=== PATIENT | male | born 1970 | race Caucasian/White ===

== ENCOUNTER → 2017-05-31 | Outpatient (CLI) | payer BC ==
[~2017-05-31] MED LIST: ALBU8.5H2 IH; CLAR-19 PO; PRD10T PO
--- NOTE | 2017-05-31 11:17 | Diagnostic Imaging Report ---
INDICATION: Left upper quadrant pain and enlarged spleen. Evaluation of the left upper quadrant demonstrates the spleen to be normal in size measuring 11.2 x 6.0 x 4.5 cm. No abdominal wall hernia is identified. No abnormalities are detected. IMPRESSION: Unremarkable left upper quadrant ultrasound. Dictated by: Dictated on workstation # [id number]
== END ==
LOC: RAD 10:45
PROVIDERS: ATTEND Nurse Practitioner Family
DX: R16.1 Splenomegaly, not elsewhere classified (principal)
CPT/HCPCS: 76705

== ENCOUNTER → 2018-01-07 | Outpatient (CLI) | payer BC ==
[~2018-01-07] VITALS: Ht 172.7 cm; Wt 86.2 kg
[~2018-01-07] MED LIST changes: +ACHD5005 PO
== END | disposition home or self-care (01) ==
LOC: PREOP 07:02
PROVIDERS: ATTEND Surgery
DX: Z01.818 Encounter for other preprocedural examination (principal)

== ENCOUNTER 2018-01-08 07:36 | Day surgery (SDC) | payer BC ==
[~2018-01-08] VITALS: Ht 172.7 cm; Wt 86.2 kg
[~2018-01-08 07:36] MED LIST changes: -ACHD5005 PO
[2018-01-08 07:45] VITALS: BP 133/87
[2018-01-08] MEDS ORDERED: CLINDAMYCIN 600 MG/50 ML IVPB 50 ML IV ONE ×2 (08:00)
[2018-01-08] MEDS ORDERED: CATHETER FLUSH 10 ML SYR IV PRN (08:00)
[2018-01-08] MEDS ORDERED: LACTATED RINGERS 1,000 ML IV SCH (08:30)
[2018-01-08] MEDS ORDERED: MIDAZOLAM 2 MG/2 ML (VERSED) VIAL ONE (08:37)
[2018-01-08] MEDS ORDERED: fentaNYL INJECTION 100 MCG/2 ML AMP ONE (08:37)
[2018-01-08] MEDS ORDERED: PROPOFOL INJECTION 50 ML IV ONE (08:38)
--- NOTE | 2018-01-08 08:39 | Progress Note-Pre Operative ---
Pre-Operative Progress Note H&P Reviewed The H&P was reviewed, patient examined and no changes noted. Date Seen by Provider: Jan 08, 2018 Time Seen by Provider: 08:10 Date H&P Reviewed: Jan 08, 2018 Time H&P Reviewed: 08:10 Pre-Operative Diagnosis: lipoma left chest wall MARC ANTHONY DO Jan 08, 2018 08:39
[2018-01-08] MEDS ORDERED: BUPIVACAINE 0.5% 30 ML (SENSORCAINE) VIAL ONE (08:40)
[2018-01-08] MEDS ORDERED: LIDOCAINE 1% INJ 20 ML 20 ML VIAL ONE (08:41)
--- NOTE | 2018-01-08 09:34 | Progress Note-Post Operative ---
Post-Operative Progess Note Surgeon (s)/Pilot Plant Supervisor (s) Surgeon MARC ANTHONY DO Pilot Plant Supervisor: NA Pre-Operative Diagnosis lipoma left chest wall Post-Operative Diagnosis INTRAMUSCULAR LIPOMA LEFT CHEST WALL Procedure & Operative Findings Date of Procedure 01/08/18 Procedure Performed/Findings EXCISION OF INTRAMUSCULAR LIPOMA LEFT CHEST WALL 3.5 X 2 CM Anesthesia Type MAC Estimated Blood Loss Estimated blood loss (mL): MIN Specimens/Packing Specimens Removed LIPOMA MARC ANTHONY DO Jan 08, 2018 09:34
[2018-01-08] MEDS ORDERED: ACHD5005 PO (09:35)
--- NOTE | 2018-01-08 09:37 | Discharge Inst-Simple/Standard ---
Discharge Inst-Standard Discharge Medications New, Converted or Re-Newed RX: RX on Chart Patient Instructions/Follow Up Plan of Care/Instructions/FU: 2 WEEKS Tabitha Activity as Tolerated: Yes Discharge Diet: Regular Diet Other Inst to Patient Follow up Appt: Make appointment for 2 week. Instructions: No strenuous activity. May shower in 24 hours, no tub bath or soaking. Use incentive spirometer at home as directed. No Smoking Skin/Wound Care: YOU HAVE SPECIAL GLUE OVER INCISION IT WILL FALL OFF ON ITS OWN.. Symptoms to Report: Appetite Changes, Extremity Discoloration, Numbness/Tingling, Swelling Increased , Bleeding Excessive, Eyesight Changes, Pain Increased, Urine Color Change, Constipation(Persistent), Fever over 101 degree F, Pain/Pressure in chest, Urinating Difficulty, Cough Up/Vomit Blood, Heart Beat Irreg/Pounding, Pain/ Pressure in jaw, Vaginal Bleeding Increase, Cramps in feet or legs, Lightheadedness, Pain/Pressure in shoulder, Diarrhea(Persistent), Memory Changes Suddenly, Questions/Concerns, Weight gain consecutive days, Dizziness/ Fainting, Nausea/Vomiting, Shortness of Breath, Weight gain over 2 pounds If questions or concerns contact your physician Or seek help at emergency department. MARC ANTHONY DO Jan 08, 2018 09:37
[2018-01-08 10:10] VITALS: BP 112/75
[2018-01-08 10:40] VITALS: BP 117/81
[2018-01-08 10:50] VITALS: BP 117/81
--- NOTE | 2018-01-08 10:55 | Anesthesia-General Post-Op ---
MAC Patient Condition Mental Status/LOC: Same as Preop Cardiovascular: Satisfactory Nausea/Vomiting: Absent Respiratory: Satisfactory Pain: Controlled Complications: Absent Post Op Complications Complications None Follow Up Care/Instructions Patient Instructions None needed. Anesthesiology Discharge Order Discharge Order Patient is doing well, no complaints, stable vital signs, no apparent adverse anesthesia problems. No complications reported per nursing. RIDGE SLATER CRNA Jan 08, 2018 10:55
--- NOTE | 2018-01-08 23:39 | OPERATIVE REPORT ---
DATE OF SERVICE: 01/08/2018 PREOPERATIVE DIAGNOSIS: Lipoma, left chest wall. POSTOPERATIVE DIAGNOSIS: Lipoma, intramuscular left chest wall. PROCEDURE: Excision of intramuscular lipoma from left chest wall 3.5 x 2 cm. SURGEON: Marc Carrillo DO ANESTHESIA: MAC with local. ESTIMATED BLOOD LOSS: Minimal. COMPLICATIONS: None. INDICATIONS: The patient is a 47-year-old male with a lipomatous mass on the left chest wall. He understands risks and benefits of procedure and wished to proceed with procedure. Consent was signed on the chart. DESCRIPTION OF PROCEDURE: The patient was taken to the operating suite, was prepped and draped in sterile fashion. Surgical pause was performed. Local anesthetic was infiltrated into the area. A 15 blade scalpel was used to make an incision over the palpable mass. Cautery was used to dissect down through the subcutaneous tissues. lipoma was encountered and the muscle was encountered, which still the palpable mass was under the muscular tissue. A hemostat was then used to start to divide the muscle bluntly and the lipoma was encountered, which was then able to be removed. Overall, dimensions 3.5 x 2 cm. Once this was removed, the wound was irrigated with copious amounts of irrigation. The subcutaneous tissues were reapproximated using 3-0 Vicryl. Skin was then closed using 4-0 Monocryl in a subcuticular running fashion. The area was washed and dried and skin Affix was then placed over the incision. The patient tolerated procedure well without complications. He was taken to recovery room in stable condition. Job ID: [id number] DocumentID: [id number] Dictated Date: 01/08/2018 17:10:58 Candy Cutter Machine Date: 01/08/2018 23:38:54 Dictated By: MARC CARRILLO DO
== END 2018-01-08 10:50 | disposition home or self-care (01) ==
LOC: SDC 07:36
PROVIDERS: ATTEND Surgery
DX: D17.1 Benign lipomatous neoplasm of skin and subcutaneous tissue of trunk (principal); Z11.2 Encounter for screening for other bacterial diseases
CPT/HCPCS: 87081

== ENCOUNTER 2021-04-28 09:49 | Day surgery (SDC) | payer BC ==
[2021-04-28] VITALS (8 sets, daily range): BP systolic 110–122; BP diastolic 71–77
[~2021-04-28] VITALS: Ht 175.3 cm; Wt 82.3 kg
[~2021-04-28 09:49] MED LIST changes: +ACHD5005 PO
[2021-04-28 10:13] LABS: BASOPHILS % (AUTO) 0 % (0-10); EOSINOPHILS % (AUTO) 0 % (0-10); HEMATOCRIT 42 % (40-54); HEMOGLOBIN 14.7 g/dL (13.3-17.7); LYMPHOCYTES # (AUTO) 0.6 10^3/uL (1.0-4.0); LYMPHOCYTES % (AUTO) 7 % (12-44); MEAN CORPUSCULAR HEMOGLOBIN 30 pg (25-34); MEAN CORPUSCULAR HGB CONC 35 g/dL (32-36); MEAN CORPUSCULAR VOLUME 85 fL (80-99); MEAN PLATELET VOLUME 8.5 fL (9.0-12.2); MONOCYTES # (AUTO) 0.7 10^3/uL (0.0-1.0); MONOCYTES % (AUTO) 8 % (0-12); NEUTROPHILS # (AUTO) 7.6 10^3/uL (1.8-7.8); NEUTROPHILS % (AUTO) 84 % (42-75); PLATELET COUNT 174 10^3/uL (130-400)
[2021-04-28 10:23] LABS: ALBUMIN 4.1 GM/DL (3.2-4.5); POTASSIUM 4.1 MMOL/L (3.6-5.0)
[2021-04-28 10:24] LABS: CALCIUM 9.1 MG/DL (8.5-10.1)
[2021-04-28 10:27] LABS: BILIRUBIN,TOTAL 0.7 MG/DL (0.1-1.0)
[2021-04-28 10:29] LABS: CREATININE SERUM 1.26 MG/DL (0.60-1.30)
[2021-04-28 10:30] LABS: FIBRIN DEGRADATION PRODUCTS 0.26 UG/ML (0.00-0.49); INR 1.1 (0.8-1.4); PROTHROMBIN TIME PATIENT 14.4 SEC (12.2-14.7)
[2021-04-28 10:38] LABS: BILIRUBIN,URINE NEGATIVE (NEGATIVE); CLARITY,URINE CLEAR; COLOR,URINE YELLOW; GLUCOSE, URINE (UA) NEGATIVE (NEGATIVE); KETONES,URINE NEGATIVE (NEGATIVE); LEUKOCYTE ESTERASE ,URINE NEGATIVE (NEGATIVE); NITRITE,URINE NEGATIVE (NEGATIVE); PROTEIN,URINE NEGATIVE (NEGATIVE)
[2021-04-28] MEDS ORDERED: HEParin (CATH LAB) 2,000 ML IV ONE (10:45)
[2021-04-28] MEDS ORDERED: HEParin 1000 UNIT/ML (10ML VIAL) FOR BOLUS IV ONE (10:45)
[2021-04-28] MEDS ORDERED: ASPIRIN 81 MG CHEW (CHILDREN'S ASA) PO ONE (10:45)
[2021-04-28] MEDS ORDERED: LIDOCAINE 1% INJ 20 ML VIAL ONE (10:45)
[2021-04-28] MEDS ORDERED: HEParin DRIP 25000 UNIT/500ML 500 ML IV ONE (10:45)
[2021-04-28] MEDS ORDERED: NS IV 1000 ML 1,000 ML ONE (10:45)
[2021-04-28 10:46] LABS: BACTERIA,URINE MODERATE /HPF
[2021-04-28] MEDS ORDERED: MIDAZOLAM 5 MG/5 ML (VERSED) VIAL ONE (10:46)
[2021-04-28] MEDS ORDERED: fentaNYL INJ 100 MCG/2 ML AMP ONE (10:46)
[2021-04-28] MEDS ORDERED: HEParin 1000 UNIT/ML (10ML VIAL) FOR BOLUS ONE (10:48)
[2021-04-28] MEDS ORDERED: NITRO DRIP 25000 MCG/D5W 0 ML IV ONE (10:48)
[2021-04-28] MEDS ORDERED: EPTIFIBATIDE BOLUS 20 ML IV ONE (10:49)
--- NOTE | 2021-04-28 10:49 | ED Chest Pain ---
General Chief Complaint: Chest Pain Stated Complaint: COVID +, CP, HIGH HR Nursing Triage Note: PT AMBULATE TO ROOM 08 FROM URGENT CARE WITH C/O PALPATATIONS SINCE LAST NIGHT. PT DENIES CHEST PAIN. Source: patient Exam Limitations: no limitations, other (Urgent care record) History of Present Illness Date Seen by Provider: Apr 28, 2021 Time Seen by Provider: 10:02 Initial Comments This 50-year-old gentleman presents to the emergency room as directed by [facility] for reasons of chest pain with concerning EKG. He was diagnosed with COVID-19 on April 25 after developing symptoms on April 23. He had received his COVID-19 booster vaccination 24 hours prior to that. EKG sent from urgent care demonstrated ST changes in V1 through V4 concerning for ischemia. Patient describes a vague chest pressure rated as 3/10. He identifies no exacerbating factors. Vital signs are unremarkable. He states activity such as a walk he took last night improved the discomfort. He first noted the symptoms of palpitation and chest pressure last night. The sym ptoms made it difficult for him to sleep and he did not sleep much last night. He denies smoking. He has no prior history of coronary artery disease. He has hypertension and notable family history of coronary artery disease in his father who has stents. He chews tobacco and occasionally drinks alcohol. Aspirin 324 mg was administered at urgent care. He has been monitoring his oxygen saturations at home and reports they have been 99-100. His primary symptom has been fatigue. Allergies and Home Medications Allergies Coded Allergies: cefprozil (Verified Allergy, Unknown, 01/07/18) Patient Home Medication List Home Medication List Reviewed: Yes Azithromycin (Azithromycin) 250 Mg Tablet, 250 MG PO UD Prescribed by: CHAYA GOMEZ on 04/28/21 1154 Discontinued Medications Hydrocodone Bit/Acetaminophen (Lortab 5 Mg Tablet) 1 Tab Tab, 1 TAB PO Q4-6HR Discontinued Reason: No Longer Taking Prescribed by: MARC ANTHONY on 01/08/18 8825 Review of Systems Review of Systems Constitutional: no symptoms reported EENTM: No Symptoms Reported Respiratory: No Symptoms Reported Cardiovascular: See HPI Gastrointestinal: No Symptoms Reported Genitourinary: No Symptoms Reported Musculoskeletal: no symptoms reported Skin: no symptoms reported Psychiatric/Neurological: No Symptoms Reported Endocrine: No Symptoms Reported Hematologic/Lymphatic: No Symptoms Reported Past Xrexeum-Ktxiwv-Uoofvp Hx Patient Social History Tobacco Use?: No Smoking Status: Never a Smoker Smokeless Tobacco Frequency: Current Everyday User Use of E-Cig and/or Vaping dev: No Use of E-Cig and/or Vaping Arthur: Never a User Substance use?: No Alcohol Use?: Yes Alcohol Frequency: Once in a while Pt feels they are or have been: No Immunizations Up To Date First/Initial COVID19 Vaccinat: 06/2020 Second COVID19 Vaccination Vinod: 06/2020 Seasonal Allergies Seasonal Allergies: No Past Medical History Surgeries: Yes Appendectomy Respiratory: No Cardiac: Yes Hypertension (Borderline) Neurological: No Reproductive Disorders: No Sexually Transmitted Disease: No HIV/AIDS: No Genitourinary: No Gastrointestinal: No Musculoskeletal: No Endocrine: No HEENT: No Loss of Vision: Denies Hearing Impairment: Denies Cancer: No Psychosocial: No Integumentary: No Adverse Reaction/Blood Tranf: No (N/A) Family Medical History Reviewed and Corrections made Heart Disease Physical Exam Vital Signs Vital Signs - First Documented 04/28/21 09:58 Temp 37.1 Pulse 101 Resp 17 B/P (MAP) 131/79 (96) O2 Delivery Room Air Capillary Refill : Less Than 3 Seconds Height, Weight, BMI Height: 5'8.00" Weight: 190lbs. 0.0oz. 86.134696zt; 26.00 BMI Method:Stated General Appearance: No Apparent Distress, WD/WN HEENT: PERRL/EOMI, Normal ENT Inspection Neck: Normal Inspection; No JVD Respiratory: Lungs Clear, Normal Breath Sounds, No Accessory Muscle Use, No Respiratory Distress Cardiovascular: Regular Rate, Rhythm, No Edema, No Murmur Gastrointestinal: Normal Bowel Sounds, Non Tender, Soft Extremity: Normal Inspection, Non Tender, No Pedal Edema Neurologic/Psychiatric: Alert, Oriented x3, No Motor/Sensory Deficits, Normal Mood/Affect, pharmacovigilance safety expert II-XII Norm as Tested Skin: Normal Color, Warm/Dry Focused Exam Lactate Level 04/28/21 10:15: Lactic Acid Level 0.72 Lactic Acid Level Laboratory Tests Test 04/28/21 10:15 Lactic Acid Level 0.72 MMOL/L (0.50-2.00) Progress/Results/Core Measures Results/Orders Lab Results Laboratory Tests Test 04/28/21 10:05 1/14/22 10:15 04/28/21 10:20 Range/Units White Blood Count 9.0 4.3-11.0 10^3/uL Red Blood Count 4.96 4.30-5.52 10^6/uL Hemoglobin 14.7 13.3-17.7 g/dL Hematocrit 42 40-54 % Mean Corpuscular Volume 85 80-99 fL Mean Corpuscular Hemoglobin 30 25-34 pg Mean Corpuscular Hemoglobin Concent 35 32-36 g/dL Red Cell Distribution Width 12.8 10.0-14.5 % Platelet Count 174 130-400 10^3/uL Mean Platelet Volume 8.5 L 9.0-12.2 fL Immature Granulocyte % (Auto) 0 % Neutrophils (%) (Auto) 84 H 42-75 % Lymphocytes (%) (Auto) 7 L 12-44 % Monocytes (%) (Auto) 8 0-12 % Eosinophils (%) (Auto) 0 0-10 % Basophils (%) (Auto) 0 0-10 % Neutrophils # (Auto) 7.6 1.8-7.8 10^3/uL Lymphocytes # (Auto) 0.6 L 1.0-4.0 10^3/uL Monocytes # (Auto) 0.7 0.0-1.0 10^3/uL Eosinophils # (Auto) 0.0 0.0-0.3 10^3/uL Basophils # (Auto) 0.0 0.0-0.1 10^3/uL Immature Granulocyte # (Auto) 0.0 0.0-0.1 10^3/uL Prothrombin Time 14.4 12.2-14.7 SEC INR Comment 1.1 0.8-1.4 Activated Partial Thromboplast Time 32 24-35 SEC D-Dimer 0.26 0.00-0.49 UG/ML Sodium Level 135 135-145 MMOL/L Potassium Level 4.1 3.6-5.0 MMOL/L Chloride Level 103 98-107 MMOL/L Carbon Dioxide Level 22 21-32 MMOL/L Anion Gap 10 5-14 MMOL/L Blood Urea Nitrogen 9 7-18 MG/DL Creatinine 1.26 0.60-1.30 MG/DL Estimat Glomerular Filtration Rate 70 BUN/Creatinine Ratio 7 Glucose Level 116 H 70-105 MG/DL Calcium Level 9.1 8.5-10.1 MG/DL Corrected Calcium 9.0 8.5-10.1 MG/DL Magnesium Level 1.9 1.6-2.4 MG/DL Total Bilirubin 0.7 0.1-1.0 MG/DL Aspartate Amino Transf (AST/SGOT) 53 H 5-34 U/L Alanine Aminotransferase (ALT/SGPT) 84 H 0-55 U/L Alkaline Phosphatase 128 40-136 U/L Myoglobin 36.3 10.0-92.0 NG/ML Troponin I < 0.028 <0.028 NG/ML C-Reactive Protein High Sensitivity 11.80 H 0.00-0.50 MG/DL Total Protein 7.0 6.4-8.2 GM/DL Albumin 4.1 3.2-4.5 GM/DL Procalcitonin 0.27 H <0.10 NG/ML Lactic Acid Level 0.72 0.50-2.00 MMOL/L Urine Color YELLOW Urine Clarity CLEAR Urine pH 6.0 5-9 Urine Specific [place] >=1.030 1.016-1.022 Urine Protein NEGATIVE NEGATIVE Urine Glucose (UA) NEGATIVE NEGATIVE Urine Ketones NEGATIVE NEGATIVE Urine Nitrite NEGATIVE NEGATIVE Urine Bilirubin NEGATIVE NEGATIVE Urine Urobilinogen 0.2 < = 1.0 MG/DL Urine Leukocyte Esterase NEGATIVE NEGATIVE Urine RBC (Auto) NEGATIVE NEGATIVE Urine RBC NONE /HPF Urine WBC 2-5 /HPF Urine Squamous Epithelial Cells 5-10 /HPF Urine Renal Epithelial Cells NONE /HPF Urine Crystals NONE /LPF Urine Bacteria MODERATE H /HPF Urine Casts NONE /LPF Urine Mucus NEGATIVE /LPF Urine Culture Indicated YES My Orders Orders - CHAYA DUNN MD Cbc With Automated Diff (04/28/21 10:02) Comprehensive Metabolic Panel (04/28/21 10:02) Blood Culture (04/28/21 10:02) Urinalysis (04/28/21 10:02) Urine Culture (04/28/21 10:02) Protime With Inr (04/28/21 10:02) Partial Thromboplastin Time (04/28/21 10:02) Chest 1 View, Ap/Pa Only (04/28/21 10:02) Ed Iv/Invasive Line Start (04/28/21 10:02) Ed Iv/Invasive Line Start (04/28/21 10:02) O2 (04/28/21 10:02) Remove Rings In Anticipation O (04/28/21 10:02) Lactic Acid Analyzer (04/28/21 10:02) Fibrin Degradation Products (04/28/21 10:02) Procalcitonin (Pct) (04/28/21 10:02) Hs C Reactive Protein (04/28/21 10:02) Magnesium (04/28/21 10:30) Ekg Tracing (04/28/21 10:30) Myoglobin Serum (04/28/21 10:30) Monitor-Rhythm Ecg Trace Only (04/28/21 10:30) Troponin I [place] (04/28/21 10:30) Aspirin Chewable Tablet (Baby Aspirin Ch (04/28/21 10:45) Heparin Drip 37656 Unit/500ml (Heparin (04/28/21 10:45) Heparin (Bolus Per Protocol) (Heparin (B (04/28/21 10:45) Vital Signs/I&O 04/28/21 09:58 Temp 37.1 Pulse 101 Resp 17 B/P (MAP) 131/79 (96) O2 Delivery Room Air Blood Pressure Mean: 96 Progress Progress Note #1: Time: 10:53 Progress Note As soon as ST changes were brought to my attention, EKG was shared with Dr. Orr and he was paged. After reviewing EKG together, we determined cardiac angiography is the best course of action as acute [place] cannot be ruled out based on the EKG from the ER as well as EKG sent from urgent care. Patient received aspirin at the urgent care. Heparin will be initiated in the ER. Forensic Psychologist has been activated. Progress Note #2: Progress Note Patient was found to have no obstructive coronary artery disease on angiography. He was recovered in outpatient surgery. He was discharged from there by this provider. There was questionable infiltrate in the left lower lung. Azithromycin was prescribed as a precaution. Patient meets criteria for monoclonal antibody therapy with history of hypertension. Order for monoclonal antibody therapy was submitted to the pharmacy. Patient was informed his quali fication depends on available product and prioritization of patients. He expressed understanding. See discharge instructions for further information. Initial ECG Impression Date: Apr 28, 2021 Initial ECG Impression Time: 10:04 Initial ECG Rate: 106 Initial ECG Rhythm: S.Tach Comment Sinus tachycardia with ST depression in V1 and V2 with ST elevation in the [address] changes in V4. Findings are suspicious for developing ischemia but not necessarily clear-cut STEMI. No abnormal intervals or axis deviation. Diagnostic Imaging Diagonstic Imaging: Xray Plain Films/CT/US/NM/MRI: chest Comments Chest x-ray reviewed by me and report not yet available. Patchy infiltrate in the left lower lobe. Otherwise no acute abnormality appreciated. Departure Communication (Admissions) Time/Spoke to Admitting Phy: 10:30 Dr. Orr Impression Primary Impression: Abnormal EKG Additional Impressions: COVID-19 Chest pain Qualified Codes: R07.9 - Chest pain, unspecified Disposition: HOME, SELF-CARE Condition: Improved Admissions Decision to Admit Reason: Admit from ER (General) Decision to Admit/Date: Apr 28, 2021 Time/Decision to Admit Time: 10:30 Departure-Patient Inst. Decision time for Depature: 11:40 Referrals: JUAN LUIS GUTIERREZ DO (PCP/Family) Primary Care Physician Patient Instructions: COVID-19 Overview, Sotrovimab FDA Fact Sheet Add. Discharge Instructions: Complete the azithromycin antibiotic as prescribed. Continue to monitor oxygen saturations at home. If you have repeated oxygen saturations less than 92% or any oxygen saturation less than 90%, please return to the ER. Remain in quarantine for a full 10 days given your duration of symptoms. Follow-up with Dr. Orr in 2 to 3 weeks after you are fully recovered from COVID-19. Please call his office for an appointment time. Call with questions or concerns. Return to the ER if you have any other worsening of symptoms. Based on your body mass index and hypertension, you may qualify for monoclonal antibody therapy to further treat COVID-19. This treatment has potential to reduce your risk for severe disease and hospitalization. Please read the fact sheet provided. If the pharmacy obtains a dose available for you, you should receive a call to schedule an infusion time. All discharge instructions reviewed with patient and/or family. Voiced understanding. Scripts Azithromycin (Azithromycin) 250 Mg Tablet 250 MG PO UD, #6 TAB TAKE 2 TABLETS ON DAY ONE THEN TAKE 1 TABLET DAILY FOR FOUR MORE DAYS Prov: CHAYA DUNN MD 04/28/21 Copy Copies To 1: CAMMIE ORR MD FACP FAC CCDS Copies To 2: JUAN LUIS GUTIERREZ JOSHUA T MD Apr 28, 2021 10:49
--- NOTE | 2021-04-28 10:51 | Diagnostic Imaging Report ---
INDICATION: COVID infection Frontal chest obtained at 10:24 a.m. Heart and mediastinal silhouette are normal in appearance. The lungs are clear. There is no pneumothorax or pleural fluid. IMPRESSION: Negative chest. Dictated by: Dictated on workstation # [id number]
[2021-04-28 10:58] LABS: MAGNESIUM 1.9 MG/DL (1.6-2.4)
[2021-04-28] MEDS ORDERED: AZIT250T12 PO (11:54)
--- NOTE | 2021-04-28 11:57 | Consultation-Cardiology ---
HPI-Cardiology Cardiology Consultation: Date of Consultation 04/28/21 Time Seen by a Provider: 10:20 Date of Admission Attending Physician She[facility]r [facility] Alex Logan DO Consulting Physician SHERIE ORR MD, MA, FACP, FAC, [facility], [facility] Physician requesting consult: Dr Gonzales HPI: Chief Complaint: Gen malaise, shortness of breath, chest discomfort HPI 50 yo man who presented To Dr Gonzales at the ER at this hosp for eval of chest discomfort and gen malaise and URI-like symptoms and an intermittent feeling of rapid heart beat. He was found to be COVID positive. ECG showed NSR but atypical, anterior-lead ST elevation was seen. Dr Gonzales requested cardiac eval and consideration of emergency card cath. Pt does not report syncope. Pt denies swelling. Has not had symptoms like these before Review of Systems-Cardiology Review of Systems Constitutional: malaise, tiredness; No weight loss, No weight gain Eyes: No vision change Ears/Nose/Throat: No ear discharge, No nasal drainage, No recent hearing loss Respiratory: As described under HPI Cardiovascular: As described under HPI Gastrointestinal: No diarrhea, No nausea, No vomiting Genitourinary: No dysuria, No hematuria, No urine frequency changes Musculoskeletal: No back pain, No joint pain Skin: No rash, No ulcerations Psychiatric/Neurological: No seizure, No focal weakness, No syncope Hematologic: No bleeding abnormalities NYF-Gxyfpb-Pzbkhk Hx Patient Social History Smoking Status: Never a Smoker Have you traveled recently?: No Alcohol Use?: Yes Pt feels they are or have been: No Immunizations Up To Date Date of Influenza Vaccine: Dec 14, 2016 Past Medical History PMH As described under Assessment. Family Medical History Family Medical History: He reports a history of heart attacks in grand parents at age greater than 60 He does not report any history of early demise in his family Allergies and Home Medications Allergies Coded Allergies: cefprozil (Verified Allergy, Unknown, 01/07/18) Patient Home Medication List Home Medication List Reviewed: Yes Hydrocodone Bit/Acetaminophen (Lortab 5 Mg Tablet) 1 Tab Tab, 1 TAB PO Q4-6HR Prescribed by: MARC ANTHONY on 01/08/18 0935 Physical Exam-Cardiology Physical Exam Vital Signs/I&O 04/28/21 09:58 Temp 37.1 Pulse 101 Resp 17 B/P (MAP) 131/79 (96) O2 Delivery Room Air Capillary Refill : Less Than 3 Seconds Constitutional: AAO x 3, well-developed, well-nourished HEENT: EOMI, hearing is well preserved; No xanthelasmas are seen Neck: carotid pulses are 2 + bilaterally Respiratory: No accessory muscle use; other (good, bilateral air entry) Cardiovascular: regular rate-rhythm, S1 and S2 Gastrointestinal: No tender; soft; No guarding, No rebound; audible bowel sounds Extremities: No clubbing, No cyanosis, No significant edema Neurologic/Psychiatric: other (moves all limbs equally) Skin: No rash on exposed areas, No ulcerations on exposed areas Data Review Labs Laboratory Tests 04/28/21 10:05: White Blood Count 9.0, Red Blood Count 4.96, Hemoglobin 14.7, Hematocrit 42, Mean Corpuscular Volume 85, Mean Corpuscular Hemoglobin 30, Mean Corpuscular Hemoglobin Concent 35, Red Cell Distribution Width 12.8, Platelet Count 174, Mean Platelet Volume 8.5L, Immature Granulocyte % (Auto) 0, Neutrophils (%) (Auto) 84H, Lymphocytes (%) (Auto) 7L, Monocytes (%) (Auto) 8, Eosinophils (%) (Auto) 0, Basophils (%) (Auto) 0, Neutrophils # (Auto) 7.6, Lymphocytes # (Auto) 0.6L, Monocytes # (Auto) 0.7, Eosinophils # (Auto) 0.0, Basophils # (Auto) 0.0, Immature Granulocyte # (Auto) 0.0, Prothrombin Time 14.4, INR Comment 1.1, Activated Partial Thromboplast Time 32, D-Dimer 0.26, Sodium Level 135, Potassium Level 4.1, Chloride Level 103, Carbon Dioxide Level 22, Anion Gap 10, Blood Urea Nitrogen 9, Creatinine 1.26, Estimat Glomerular Filtration Rate 70, BUN/Creatinine Ratio 7, Glucose Level 116H, Calcium Level 9.1, Corrected Calcium 9.0, Magnesium Level 1.9, Total Bilirubin 0.7, Aspartate Amino Transf (AST/SGOT) 53H, Alanine Aminotransferase (ALT/SGPT) 84H, Alkaline Phosphatase 128, Myoglobin 36.3, Troponin I < 0.028, C-Reactive Protein High Sensitivity 11.80H, Total Protein 7.0, Albumin 4.1, Procalcitonin 0.27H 04/28/21 10:15: Lactic Acid Level 0.72 04/28/21 10:20: Urine Color YELLOW, Urine Clarity CLEAR, Urine pH 6.0, Urine Specific [place] >=1.030, Urine Protein NEGATIVE, Urine Glucose (UA) NEGATIVE, Urine Ketones NEGATIVE, Urine Nitrite NEGATIVE, Urine Bilirubin NEGATIVE, Urine Urobilinogen 0.2, Urine Leukocyte Esterase NEGATIVE, Urine RBC (Auto) NEGATIVE, Urine RBC NONE, Urine WBC 2-5, Urine Squamous Epithelial Cells 5-10, Urine Renal Epithelial Cells NONE, Urine Crystals NONE, Urine Bacteria MODERATEH, Urine Casts NONE, Urine Mucus NEGATIVE, Urine Culture Indicated YES Laboratory Tests 04/28/21 10:05 A/P-Cardiology Assessment/Admission Diagnosis Chest discomfort, non-cardiac no evidence of ac PR, card cath normal on 04/28/21 COVID-19, being treated by Dr Gonzales Discussion and Recomendations * Card cath was performed after having obtained an informed consent. Results are summarized above * I called Dr Gonzales and have transferred care back to him for treatment of and f/u on COVID-19 * I spoke with the patient and his and explained cath findings and advised outpt f/u and answered their questions Clinical Quality Measures AMI/AHF: ASA po Prior to arrival: SHERIE Joe MD FACP FAC CCDS Apr 28, 2021 11:57
[2021-04-28] MEDS ORDERED: NS IV 1000 ML 1,000 ML IV SCH (12:15)
[2021-04-28] MEDS ORDERED: PATIENT MAY USE OWN MEDS, ALL PO SCH (12:15)
--- NOTE | 2021-04-28 13:53 | CARDIAC CATHETERIZATION ---
DATE OF SERVICE: 04/28/2021 CARDIAC CATHETERIZATION INDICATIONS: The patient is a 50-year-old man who presented to Dr Gonzales in the emergency room with feeling of malaise and nonspecific chest discomfort. His electrocardiogram showed nonspecific abnormality in the anterior leads. ST elevation could not be excluded. Urgent cardiac catheterization was carried out after having obtained an informed consent. DESCRIPTION OF PROCEDURE: He was brought to the cardiac catheterization laboratory. Right groin was prepared and draped in the usual sterile fashion. Lidocaine 1% was used for local anesthesia. Modified Seldinger technique was used to advance a 6-Thai sheath in right femoral artery. A 6-Thai JL4 catheter for left coronary angiography. A 6-Thai JR4 catheter for right coronary angiography. A 6-Thai pigtail catheter was used for left heart catheterization and left ventricular angiography. Angiography of the right femoral artery was carried out through the sheath. Mynx was used to achieve hemostasis. He tolerated the procedure well. HEMODYNAMICS: Left ventricular end-diastolic pressure following coronary angiography was 12 mmHg. There is no significant pressure gradient on pullback across the aortic valve. aortic valve. LEFT VENTRICULAR ANGIOGRAPHY: Left ventricular angiography was carried out in the right anterior oblique projection. Global left ventricular systolic function is normal. No regional wall motion abnormalities are seen. Left ventricular ejection fraction is approximately 60%. CORONARY ANGIOGRAPHY: Left main coronary artery, left circumflex artery, left anterior descending artery, right coronary artery do not exhibit any angiographically significant disease. Right coronary artery is dominant. CONCLUSIONS: 1. No angiographically significant coronary artery disease. 2. Normal global left ventricular systolic function with normal regional wall motion and left ventricular ejection fraction of 60%. 3. Normal left ventricular end-diastolic pressure. DISCUSSION AND RECOMMENDATIONS: This study does not indicate any acute cardiac issues. This was discussed with the patient and his . Care was transferred back to Dr. Gonzales for treatment of and follow up on COVID-19. Outpatient cardiac followup was advised. Job ID: [id number] DocumentID: [id number] Dictated Date: 04/28/2021 12:13:55 Support Technician Date: 04/28/2021 13:50:26 Dictated By: CAMMIE MICHAELS MD, MA, FACP, FACC, MTDD
== END 2021-04-28 14:50 | disposition home or self-care (01) ==
LOC: EDUNIT# 09:49 → ER 09:51 → CATH 10:35
PROVIDERS: ATTEND Internal Medicine Cardiovascular Disease
DX: R07.89 Other chest pain (principal); R94.39 Abnormal result of other cardiovascular function study; R06.02 Shortness of breath; U07.1 COVID-19; R53.81 Other malaise; I10 Essential (primary) hypertension; F17.220 Nicotine dependence, chewing tobacco, uncomplicated; Z79.891 Long term (current) use of opiate analgesic; Z79.899 Other long term (current) drug therapy; Z90.89 Acquired absence of other organs
CPT/HCPCS: 71045; 80053; 81000; 83605; 83735; 83874; 84145; 84484; 85025; 85379; 85610; 85730; 86141; 87040; 87088; 93005; 93041; 93458; 99285; C1760; C1894; 36415

== ENCOUNTER 2021-05-02 09:43 | Outpatient (CLI) | payer BC ==
[~2021-05-02] VITALS: Ht 175.3 cm; Wt 82.6 kg
[~2021-05-02 09:43] MED LIST changes: +AZIT250T12 PO
[2021-05-02 09:48] VITALS: BP 120/80
[2021-05-02] MEDS ORDERED: ONDANSETRON 4 MG/2 ML (SDV) Z0FRAN IV PRN (10:00)
[2021-05-02] MEDS ORDERED: SOTROVIMAB 500 MG/NS 50 ML IVPB IV ONE ×2 (10:00)
[2021-05-02] MEDS ORDERED: EPINEPHrine INJECTION 1 MG/ML AMP IM PRN (10:00)
[2021-05-02] MEDS ORDERED: ACETAMINOPHEN 500 MG TAB (TYLENOL) PO PRN (10:00)
[2021-05-02] MEDS ORDERED: diphenhydrAMINE 50 MG/ML INJ (BENADRYL) IV PRN (10:00)
[2021-05-02 11:05] VITALS: BP 124/87
== END 2021-05-02 11:15 ==
LOC: INFUSION 09:43
PROVIDERS: ATTEND Family Medicine
DX: U07.1 COVID-19 (principal); I10 Essential (primary) hypertension

== ENCOUNTER 2021-09-27 07:13 | Outpatient (CLI) | payer BC ==
[~2021-09-27] VITALS: Ht 172.7 cm; Wt 85.3 kg
[2021-09-27] MEDS ORDERED: LISI20TA26 PO (09:53)
== END 2021-09-27 09:56 | disposition home or self-care (01) ==
LOC: PREOP 07:13
PROVIDERS: ATTEND Surgery
DX: Z01.818 Encounter for other preprocedural examination (principal)

== ENCOUNTER 2021-10-04 10:44 | Day surgery (SDC) | payer BC ==
[~2021-10-04] VITALS: Ht 172 cm; Wt 85.3 kg
[2021-10-04] VITALS (7 sets, daily range): BP systolic 116–138; BP diastolic 76–95
[~2021-10-04 10:44] MED LIST changes: +LISI20TA26 PO
[2021-10-04] MEDS ORDERED: LACTATED RINGERS 1,000 ML IV STA (10:48)
[2021-10-04] MEDS ORDERED: LACTATED RINGERS 1,000 ML IV ONE (10:56)
--- NOTE | 2021-10-04 10:56 | Progress Note-Pre Operative ---
Pre-Operative Progress Note H&P Reviewed The H&P was reviewed, patient examined and no changes noted. Date Seen by Provider: Oct 04, 2021 Time Seen by Provider: 10:30 Date H&P Reviewed: Oct 04, 2021 Time H&P Reviewed: 10:30 Pre-Operative Diagnosis: screening o ABHIJEET ACOSTA MD Oct 04, 2021 10:56
--- NOTE | 2021-10-04 10:58 | Discharge Inst-Surgical ---
D/C Lap Instructions-KARLA Follow Up Activity as tolerated High Fiber Diet 25g or more per day Avoid Alcohol, Caffeine, Spicy [place] and Acid foods. Drink 64 fluid oz or more of fluids per day. Symptoms to Report: Fever over 101 degree F, Nausea/Vomiting If any problems/questions: Contact your physician or go to Emergency Room ABHIJEET ACOSTA MD Oct 04, 2021 10:58
[2021-10-04] MEDS ORDERED: ONDANSETRON 4 MG/2 ML (SDV) Z0FRAN IVP PRN (11:00)
[2021-10-04] MEDS ORDERED: ONDANSETRON 4 MG (ZOFRAN) ORAL DISSOLVE TAB PO PRN (11:00)
[2021-10-04] MEDS ORDERED: LIDOCAINE JELLY 2% 6 ML SYRINGE MM PRN (11:00)
[2021-10-04] MEDS ORDERED: MIDAZOLAM 2 MG/2 ML (VERSED) VIAL ONE (12:02)
[2021-10-04] MEDS ORDERED: PROPOFOL INJECTION 50 ML IV ONE ×2 (12:03→12:15)
--- NOTE | 2021-10-04 12:46 | Progress Note-Post Operative ---
Post-Operative Progess Note Surgeon (s)/Nursing Service Administrator (s) Surgeon ABHIJEET ACOSTA MD Nursing Service Administrator: none Pre-Operative Diagnosis screening colo Post-Operative Diagnosis normal colon and rectum Procedure & Operative Findings Date of Procedure 10/04/21 Procedure Performed/Findings colonoscopy. Anesthesia Type mac Estimated Blood Loss Estimated blood loss (mL): minimal Specimens/Packing Specimens Removed none ABHIJEET ACOSTA MD Oct 04, 2021 12:46
--- NOTE | 2021-10-04 14:19 | Anesthesia-General Post-Op ---
MAC Patient Condition Mental Status/LOC: Same as Preop Cardiovascular: Satisfactory Nausea/Vomiting: Absent Respiratory: Satisfactory Pain: Controlled Complications: Absent Post Op Complications Complications None Follow Up Care/Instructions Patient Instructions None needed. Anesthesiology Discharge Order Discharge Order Patient is doing well, no complaints, stable vital signs, no apparent adverse anesthesia problems. No complications reported per nursing. RIDGE SLATER CRNA Oct 04, 2021 14:19
--- NOTE | 2021-10-05 00:22 | OPERATIVE REPORT ---
DATE OF SERVICE: 10/04/2021 ATTENDING PRIMARY CARE PHYSICIAN: Dr. Alex Logan Pre Op Dx: screening colonoscopy. Post Op Dx: normal colon and rectum. PROCEDURE: Colonoscopy. ANESTHESIA: Monitored anesthesia care. ESTIMATED BLOOD LOSS: Minimal. FINDINGS: normal colon and rectum. DISPOSITION: The patient tolerated the procedure well. INDICATIONS: The patient is a 51-year-old male referred over to us for screening colonoscopy. He states that he is otherwise doing well, does not report any major issues with diarrhea nor constipation as well as no red blood per rectum nor any dark tarry stools. He also does not know of any family history of colon cancer. DESCRIPTION OF PROCEDURE: The patient was brought to the endoscopy suite, laid in left lateral decubitus position. After adequate IV pain and sedative medications and monitored anesthesia care, a digital rectal examination was performed. No significant hemorrhoids identified. Normal sphincter tone was felt and there were no palpable masses. Prostate gland was slightly firm; however, no nodules palpated. The endoscope was then intubated to the anus and the rectum insufflated. The endoscope was then advanced through the valves of [place] of the rectum with no polyps or any neoplasms. Through the sigmoid colon, no diverticulosis identified. We then proceeded through the remainder of the descending, transverse and ascending colon to the cecum, which were normal. There were no polyps or any neoplasms identified throughout the colon or rectum. The endoscope was then slowly withdrawn while taking a second look and suctioning of residual air with no additional findings. The patient tolerated the procedure well. We will recommend continued medical management with a high-fiber diet with a fiber supplement, which should equal or exceed 30 grams daily as well as significant amounts of water to promote soft stools on a daily basis. If he is asymptomatic, he does not need another colonoscopy for another 10 years. Job ID: [id number] DocumentID: [id number] Dictated Date: 10/04/2021 12:32:11 Explosive Operator Fuse Date: 10/04/2021 22:14:42 Dictated By: MD JANETT MORALES
== END 2021-10-04 13:10 | disposition home or self-care (01) ==
LOC: ENDO 10:44
PROVIDERS: ATTEND Surgery
DX: Z12.11 Encounter for screening for malignant neoplasm of colon (principal)